=== PATIENT | female | born 1970 | race Two or more races ===

== ENCOUNTER 2017-09-07 12:22 | Day surgery (SDC) | payer OTHER ==
[2017-09-07 13:02] VITALS: BMI 32.9
[2017-09-07] MEDS ORDERED: PROPOFOL 20 ML ONE (13:08)
[2017-09-07] MEDS ORDERED: LIDOCAINE HCL/PF 2% SDV 5ML VIAL ONE (13:08)
[2017-09-07 13:41] VITALS: TEMP 97.8
[2017-09-07 14:16] VITALS: BP 132/74; PULSE 61
--- NOTE | 2017-09-09 17:47 | PATH ---
Surgical Pathology Report Patient Name: CASEY MARCH [facility]. Rec. #: [id number] /Age/Gender: 1970 (Age: 47) / F Account: [id number] Location: U-ENDOSCOPY Taken: 09/07/2017 Received: 09/08/2017 Reported: 09/09/2017 Physicians: Ramon Cagle D.O. Specimen(s) Received A: BX DUODENUM B: BX ANTRUM C: BX BODY Clinical History Epigastric pain, anemia Postoperative diagnosis: Gastritis Final Diagnosis A. 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 B. ANTRUM, BIOPSY: GASTRIC MUCOSA WITH MILD CHRONIC INFLAMMATION. IMMUNOSTAIN IS NEGATIVE FOR H. PYLORI ORGANISMS. C. BODY, BIOPSY: GASTRIC MUCOSA WITH MILD CHRONIC INFLAMMATION. IMMUNOSTAIN IS NEGATIVE FOR H. PYLORI ORGANISMS Electronically Signed Gonzalo Nguyen M.D. Gross Description A. Received in formalin, labeled "biopsy duodenum" are 4 mtz, irregular portions of soft tissue ranging from 0.2-0.5 cm. in greatest dimension. The specimens are submitted in toto in one cassette. B. Received in formalin, labeled "antrum" are 2 mtz, irregular portions of soft tissue measuring 0.1 and 0.3 cm. in greatest dimension. The specimens are submitted in toto in one cassette. C. Received in formalin, labeled "biopsy angularis and body" are 3 mtz, irregular portions of soft tissue ranging from 0.1-0.5 cm. in greatest dimension. The specimens are submitted in toto in one cassette. 09/08/2017 [facility]09/08/2017
== END 2017-09-07 14:16 | disposition home or self-care (01) ==
LOC: JASU-ENDO 12:22
PROVIDERS: ATTEND Internal Medicine Gastroenterology
PROC: 0DB68ZX Excision of Stomach, Via Natural or Artificial Opening Endoscopic, Diagnostic (ICD-10-PCS; 2017-09-07)
PROC: 0DB98ZX Excision of Duodenum, Via Natural or Artificial Opening Endoscopic, Diagnostic (ICD-10-PCS; principal; 2017-09-07 12:30)
DX: K29.70 Gastritis, unspecified, without bleeding (principal); R10.13 Epigastric pain
CPT/HCPCS: 84703; 88305-TC; 88342-TC

== ENCOUNTER 2017-09-28 09:48 | Day surgery (SDC) | payer OTHER ==
[2017-09-28 10:20] VITALS: BMI 32.5
[2017-09-28 11:54] VITALS: TEMP 97.8
[2017-09-28 13:01] VITALS: BP 116/60; PULSE 65
--- NOTE | 2017-09-29 18:09 | PATH ---
Surgical Pathology Report Patient Name: CASEY MARCH [facility]. Rec. #: [id number] /Age/Gender: 1970 (Age: 47) / F Account: [id number] Location: [facility]-ENDOSCOPY Taken: 09/28/2017 Received: 09/28/2017 Reported: 09/29/2017 Physicians: Ramon Cagle D.O. Specimen(s) Received A: BX CECAL POLYP B: BX RIGHT COLON Clinical History Anemia Postoperative diagnosis: Polyp, hemorrhoids Final Diagnosis A. CECAL POLYP, POLYPECTOMY: TUBULAR ADENOMA. B. RIGHT COLON, BIOPSY, R/O MELANOSIS: COLONIC MUCOSA WITH MILD CHRONIC INFLAMMATION AND INCREASED NUMBERS OF PIGMENTED MACROPHAGES IN THE LAMINA PROPRIA, CONSISTENT MELANOSIS COLI. Electronically Signed Gonzalo Nguyen M.D. Gross Description A. Received in formalin, labeled "biopsy cecal polyp" is a mtz, irregular portion of soft tissue measuring 0.3 cm. in greatest dimension. The specimen is submitted in toto in one cassette. B. Received in formalin, labeled "biopsy right colon" are 3 mtz, irregular portions of soft tissue ranging from 0.2-0.3 cm. in greatest dimension. The specimens are submitted in toto in one cassette. /09/28/2017 [facility]09/28/2017
== END 2017-09-28 13:02 | disposition home or self-care (01) ==
LOC: JASU-ENDO 09:48
PROVIDERS: ATTEND Internal Medicine Gastroenterology
PROC: 0DBK8ZX Excision of Ascending Colon, Via Natural or Artificial Opening Endoscopic, Diagnostic (ICD-10-PCS; principal; 2017-09-28 11:00)
DX: I50.9 Heart failure, unspecified (principal); D12.0 Benign neoplasm of cecum; K63.89 Other specified diseases of intestine; L70.0 Acne vulgaris; K64.8 Other hemorrhoids
CPT/HCPCS: 84703; 88305-TC